=== PATIENT | male | born 1950 | race Asian ===

== ENCOUNTER 2019-05-03 11:58 | Inpatient (IN) | payer MEDICARE, OTHER ==
[~2019-05-03] VITALS: Ht 177.8 cm; Wt 54.4 kg
[2019-05-03] MEDS ORDERED: XARELTO10 MG ORAL (12:07)
[2019-05-03] MEDS ORDERED: SYNTHROID100 MCG ORAL (12:07)
[2019-05-03] MEDS ORDERED: CREON DR 36,001 EACH PO (12:07)
[2019-05-03 12:17] VITALS: BP 101/72
--- NOTE | 2019-05-03 12:17 | NUR ---
ED Nurse Note: PT WALKED IN TO ER TODAY FROM HOME. AOX4. PT STATES HE WAS TOLD HE NEEDS A BLOOD TRANSFUSION DUE TO HGB: 7.7 BY PMD. PT C/O DIZZINESS AND LIGHTHEADEDNESS. PT DENIES NAUSEA OR VOMITING. STEADY GAIT IN ER. PT STATES HE HAD MANY TESTS DONE TO LOCATE BLEEDING BUT ALL TESTS WERE NEGATIVE AND HIS OTHER DOCTORS HAVE BEEN UNABLE TO LOCATE ANY BLEEDING.
--- NOTE | 2019-05-03 12:30 | Emergency Room Report ---
History of Present Illness General Chief Complaint: Generalized Weakness Source: Medical Record Present Illness HPI .68-year-old male history of hypertension, gastric cancer, history of transfusions presents with symptomatic anemia, found to have a hemoglobin of 7.8 , symptoms have been chronic for the past week, no aggravating or alleviating factors no nausea no vomiting, no chest pain no shortness of breath, patient feels more fatigued. Severity is moderate Allergies: Coded Allergies: No Known Allergies (Unverified , 05/03/19) Patient History Past Medical History: see triage record Reviewed Nursing Documentation: PMH: Agreed; PSxH: Agreed Nursing Documentation-PMH Past Medical History: No History, Except For Hx Cardiac Problems: No - DVT in LLE Hx Hypertension: No - Hypothyroidism Hx Pacemaker: No Hx Asthma: No Hx COPD: No Hx Diabetes: No Hx Cancer: Yes Hx Gastrointestinal Problems: Yes - Gastric cancer, gastrectomy in 2003 Hx Dialysis: No History Of Psychiatric Problem: No Hx Neurological Problems: No Hx Cerebrovascular Accident: No Hx Seizures: No Review of Systems All Other Systems: negative except mentioned in HPI Physical Exam Vital Signs Date Time Temp Pulse Resp B/P (MAP) Pulse Ox O2 Delivery O2 Flow Rate FiO2 05/03/19 12:01 98.1 89 16 95/62 (73) 99 Room Air Sp02 EP Interpretation: reviewed, normal General Appearance: well appearing, no apparent distress, alert Head: normocephalic, atraumatic Eyes: bilateral eye PERRL, bilateral eye EOMI, bilateral eye conjunctivae pale ENT: uvula midline, moist mucus membranes Neck: supple, thyroid normal, supple/symm/no masses Respiratory: lungs clear, no respiratory distress, no retraction, no accessory muscle use Cardiovascular #1: normal peripheral pulses, regular rate, rhythm, no edema, no gallop, no murmur Gastrointestinal: non tender, soft, no guarding, no rebound Musculoskeletal: normal inspection Neurologic: alert, oriented x3 Psychiatric: mood/affect normal Skin: no rash, warm/dry Medical Decision Making Diagnostic Impression: Primary Impression: Symptomatic anemia ER Course 68-year-old male presents with symptomatic anemia will admit patient for transfusion Patient admitted to Dr. Jorge billingsley 05/03/2019 Laboratory Tests Test 05/03/19 13:20 White Blood Count 3.0 K/UL (4.8-10.8) L Red Blood Count 1.89 M/UL (4.70-6.10) L Hemoglobin 6.7 G/DL (14.2-18.0) *L Hematocrit 21.4 % (42.0-52.0) L Mean Corpuscular Volume 114 FL (80-99) H Mean Corpuscular Hemoglobin 35.6 PG (27.0-31.0) H Mean Corpuscular Hemoglobin Concent 31.4 G/DL (32.0-36.0) L Red Cell Distribution Width 18.2 % (11.6-14.8) H Platelet Count 168 K/UL (150-450) Mean Platelet Volume 5.1 FL (6.5-10.1) L Neutrophils (%) (Auto) % (45.0-75.0) Lymphocytes (%) (Auto) % (20.0-45.0) Monocytes (%) (Auto) % (1.0-10.0) Eosinophils (%) (Auto) % (0.0-3.0) Basophils (%) (Auto) % (0.0-2.0) Differential Total Cells Counted 100 Neutrophils % (Manual) 82 % (45-75) H Lymphocytes % (Manual) 15 % (20-45) L Monocytes % (Manual) 3 % (1-10) Eosinophils % (Manual) 0 % (0-3) Basophils % (Manual) 0 % (0-2) Band Neutrophils 0 % (0-8) Platelet Estimate Adequate Platelet Morphology Normal Hypochromasia 2+ Anisocytosis 1+ Macrocytosis 2+ Prothrombin Time 14.1 SEC (9.30-11.50) H Prothrombin Time INR 1.3 (0.9-1.1) H PTT 32 SEC (23-33) Sodium Level Pending Potassium Level Pending Chloride Level Pending Carbon Dioxide Level Pending Blood Urea Nitrogen Pending Creatinine Pending Estimate Glomerular Filtration Rate Pending Glucose Level Pending Calcium Level Pending Total Bilirubin Pending Aspartate Amino Transferase (AST) Pending Alanine Aminotransferase (ALT) Pending Alkaline Phosphatase Pending Total Protein Pending Albumin Pending Globulin Pending Last Vital Signs Date Time Temp Pulse Resp B/P (MAP) Pulse Ox O2 Delivery O2 Flow Rate FiO2 05/03/19 12:01 98.1 89 16 95/62 (73) 99 Room Air Disposition: ADMITTED INPATIENT Condition: Stable Referrals: Merlin Benoit MD (PCP) Josh Gabriel MD May 03, 2019 12:30
[2019-05-03 13:39] LABS: HEMATOCRIT 21.4 % (42.0-52.0); MEAN CORPUSCULAR VOLUME 114 FL (80-99); PLATELET COUNT 168 K/UL (150-450); RED BLOOD COUNT 1.89 M/UL (4.70-6.10); RED CELL DISTRIBUTION WIDTH 18.2 % (11.6-14.8)
[2019-05-03 13:41] LABS: HEMOGLOBIN 6.7 G/DL (14.2-18.0)
[2019-05-03 13:53] LABS: INR 1.3 (0.9-1.1)
--- NOTE | 2019-05-03 13:57 | NUR ---
ED Nurse Note: [facility] CALLED. REPORT GIVEN TO CHRISTINE REINA. AWAITING LAB RESULTS AND PRBC FROM BLOOD BANK FOR PT. ONCE TRANSFUSION IS INITIATED, PT WILL BE SENT TO [facility]. CHRISTINE REINA AWARE.
[2019-05-03 14:08] LABS: ANION GAP 9 mmol/L (5-15); BLOOD UREA NITROGEN 17 mg/dL (7-18); CARBON DIOXIDE 23 MMOL/L (21-32); CHLORIDE 109 MMOL/L (98-107); CREATININE 0.8 MG/DL (0.55-1.30); POTASSIUM 4.3 MMOL/L (3.5-5.1); SODIUM 141 MMOL/L (136-145)
[2019-05-03 14:12] LABS: ALANINE AMINOTRANSFERASE 52 U/L (12-78); ALBUMIN 3.1 G/DL (3.4-5.0); ALBUMIN/GLOBULIN RATIO 1.6 (1.0-2.7); ALKALINE PHOSPHATASE 56 U/L (46-116); ASPARTATE AMINO TRANSFERASE 78 U/L (15-37); BILIRUBIN,TOTAL 0.8 MG/DL (0.2-1.0)
--- NOTE | 2019-05-03 14:38 | NUR ---
NURSE NOTES: RECEIVED REPORT FROM ALEXANDRU FROM ER. PT TO BE ADMITTED TO FLOOR. ALEXANDRU WILL INITIATE FIRST UNIT OF PRBC AND SEND PT UP TO FLOOR. PER ALEXANDRU, PT STATED HE WILL SIGN OUT AMA AFTER RECEIVING BLOOD.
[2019-05-03] MEDS ORDERED: HYDROmorphone 1mg/ml Carpuject IVP PRN (15:15)
--- NOTE | 2019-05-03 15:44 | NUR ---
ED Nurse Note: BLOOD BANK CALLED STATING BLOOD READY. WENT DOWN WITH ORDER AND CONSENT. MOTORCOACH OPERATOR STATES SECOND PINK TUBE WAS NOT RECEIVED AND IS NEEDED FOR CONFIRMATION. UPON SEARCHING LAB AGAIN, TECH FOUND THE TUBE. TECH NOW RUNNING CONFIRMATION AND WILL CALL BACK WHEN BLOOD IS READY.
--- NOTE | 2019-05-03 16:21 | NUR ---
ED Nurse Note: PT TAKEN UP TO [facility] VIA GURNEY WITH ALL BELONGINGS RUNNING BLOOD TRANSFUSION. CHRISTINE REINA AWARE. VSS.
[2019-05-03] MEDS: NS w/KCl 20mEq 1000ml 1,000 ML IV SCH (16:47)
[2019-05-03] MEDS: Pancrelipase Dr Cap ORAL SCH (17:22)
--- NOTE | 2019-05-03 18:03 | NUR ---
NURSE NOTES: PT IS RECEIVING FIRST UNIT OF PRBC. TOLERATING WELL. DENIES SOB OR PAIN. RESTING IN BED. PT STATES HE DOES NOT HAVE MUCH OF AN APPETITE. AT BEDSIDE. PT STATES HE WANTS TO LEAVE AMA AFTER BLOOD TRANSFUSION, TO GO BACK HOME TO [place]. PT AND HAVE 4 DOGS AT HOME WITH NO ONE TO LOOK AFTER THEM. RN EDUCATED PT ON PLAN OF CARE. CRN MADE AWARE.
--- NOTE | 2019-05-03 18:15 | History and Physical Report ---
DATE OF ADMISSION: 05/03/2019 CONSULTANTS: 1. Surendra Benoit M.D. 2. Noel Mayorga M.D. CHIEF COMPLAINT: Weakness, dizziness, and symptomatic anemia. BRIEF HISTORY: This is a 68-year-old male with history of stomach cancer in the past, had stomach surgery, has been under the care of Dr. Benoit, apparently found to have symptomatic anemia, was dizzy and weak, came to [place], diagnosed with the above, and being admitted to medical floor shortly. Currently, calm in bed, in the ER [facility]. No complaint. REVIEW OF SYSTEMS: No chest pain. Slight short of breath. Slight nausea. No vomiting. No diarrhea. PAST MEDICAL HISTORY: Includes stomach cancer and anemia. PAST SURGICAL HISTORY: Stomach surgery. MEDICATION: Include just IV fluids for now. ALLERGIES: Denies. SOCIAL HISTORY: No smoking. No alcohol. No intravenous drug abuse. FAMILY HISTORY: Noncontributory. PHYSICAL EXAMINATION: GENERAL: Calm in bed, oriented x3, and in no acute distress. VITAL SIGNS: Show temperature is 98 degrees, pulse 66, respirations 14, and blood pressure 101/72. CARDIOVASCULAR: No murmurs. LUNGS: Distant and clear. ABDOMEN: Bowel sounds positive. Nontender. Nondistended. EXTREMITIES: Show no cyanosis, clubbing, or edema. NEUROLOGIC: The patient moves all extremities, slightly weak. LABORATORY AND DIAGNOSTIC DATA: White count 3.0, H and H are 6.7 and 21, and platelets 168,000. BMP shows chloride 109, calcium 8.0, and albumin 3.1. INR is 1.3. ASSESSMENT: 1. Symptomatic anemia. 2. Dizziness. 3. Weakness. 4. Malnutrition. 5. Leukopenia. 6. History of stomach cancer. PLAN: 1. Transfuse per Hematology. 2. PT, OT, and dietary followup. 3. CBC and BMP in the morning. 4. We will get Hematology and GI to evaluate. 5. We will continue to follow this patient. Liam Rader D.O. DR: CORINNA JOB#: [id number] CC:
--- NOTE | 2019-05-03 19:00 | NUR ---
NURSE NOTES: SECOND BAG OF PRBC STARTED. PT TOLERATING WELL. RN CONFIRMED WITH DR OSWALD, ONLY 2 UNITS OF PRBC TO B TRANSFUSED. RN UNABLE TO CANCEL ORDER. RN ENTERED UNDER OTHER NURSING ORDERS AND Jeet HODGSON RN, MADE AWARE.
--- NOTE | 2019-05-03 19:40 | NUR ---
HAND-OFF: Report given to Jeet HODGSON RN.
[2019-05-03 20:00] VITALS: BP_SYST 108; BP_SYST 97; BP_DIAS 65; BP_DIAS 71
[2019-05-03] MEDS: Docusate 100mg cap ORAL SCH (21:00)
[2019-05-04 00:30] VITALS: BP 97/65
[2019-05-04 04:30] VITALS: BP 82/59
[2019-05-04] MEDS: NS w/KCl 20mEq 1000ml 1,000 ML IV SCH (04:36)
--- NOTE | 2019-05-04 04:45 | NUR ---
NURSE NOTES: Pt's BP really low; upon re-assessment, BP went up to 82/59. Convinced pt to start IVF ordered by primary MD; pt agreeable. Also saw pt's own home supply of Xanax at bedside that was previously not there; asked pt if he took some Xanax and he said yes. Educated pt on hospital's policy regarding keeping home meds at bedside; pt refused to turn in medication and then proceeded to deny that he took any Xanax in the first place. Will continue to monitor.
[2019-05-04 04:47] LABS: BASOPHILS % (AUTO) 0.7 % (0.0-2.0); EOSINOPHILS % (AUTO) 0.1 % (0.0-3.0); HEMATOCRIT 30.2 % (42.0-52.0); MEAN CORPUSCULAR VOLUME 103 FL (80-99); MONOCYTES % (AUTO) 4.4 % (1.0-10.0); NEUTROPHILS % (AUTO) 76.8 % (45.0-75.0); PLATELET COUNT 120 K/UL (150-450); RED BLOOD COUNT 2.92 M/UL (4.70-6.10); RED CELL DISTRIBUTION WIDTH 20.4 % (11.6-14.8); WHITE BLOOD COUNT 5.1 K/UL (4.8-10.8)
[2019-05-04 05:11] LABS: ANION GAP 8 mmol/L (5-15); BLOOD UREA NITROGEN 15 mg/dL (7-18); CALCIUM 7.6 MG/DL (8.5-10.1); CARBON DIOXIDE 23 MMOL/L (21-32); CHLORIDE 110 MMOL/L (98-107); CHOLESTEROL < 50 MG/DL (< 200); CREATININE 0.9 MG/DL (0.55-1.30); HDL CHOLESTEROL 12 MG/DL (40-60); POTASSIUM 4.1 MMOL/L (3.5-5.1); SODIUM 141 MMOL/L (136-145); TRIGLYCERIDES 66 MG/DL (30-150)
[2019-05-04 05:21] LABS: INR 1.4 (0.9-1.1)
--- NOTE | 2019-05-04 07:26 | NUR ---
HAND-OFF: Report given to CHRISTINE Barrera. Endorsed to please f/u w/MD regarding pt's low BP and w/radiology regarding time of U/S.
[2019-05-04 08:00] VITALS: BP 79/54
[2019-05-04] MEDS: Pancrelipase Dr Cap ORAL SCH (09:00)
[2019-05-04] MEDS: Docusate 100mg cap ORAL SCH (09:00)
[2019-05-04] MEDS ORDERED: NS 275ml ONE (09:29)
[2019-05-04] MEDS ORDERED: Tubing IV Blood Pump IV ONE (09:29)
--- NOTE | 2019-05-04 09:29 | NUR ---
NURSE NOTES: US of ABD done. Patient refused EGD, consent not signed. Patient yelling, anxious, wants to eat and go home. Dr. Mayorga and Sanket DRUM CLEANER notified, advised to keep patient NPO and will be in talk to patient. Patient refused, wants IV out. Dr. Rader and Dr. Benoit notified of above, blood pressure 79/54 mmHg. HH 1030.2 post transfusion. Refused morning meds. Patient wants to leave AMA, explained above status and need for further medical care, benefits and importance of hospitalization and risks for worsening illness, AMA form signed, IV discontinued by RN, no active bleeding. Spouse at bedside. Patient states he is following up with his PCP next week. Patient ambulated down to lobby with spouse and all belongings.
--- NOTE | 2019-05-04 10:08 | NUR ---
P.T NOTE: LATE ENTRY 929 P.T EVALUATION COMPLETED. PATIENT IS ALERT , O X 4 , PLEASANT AND COOPERATIVE, DENIED C/O PAIN PAIN. PATIENT IS CURRENTLY BASELINE INDEPENDENT IN ALL AREAS FUNCTIONAL MOBILITIES, GAIT/LOCOMOTION . SKILLED P.T SERVICE IS NOT NEEDED AT THIS TIME . THANK YOU FOR THIS REFERRAL.
--- NOTE | 2019-05-04 12:46 | Diagnostic Imaging Report ---
Indication: Abdominal pain Technique: Grayscale and duplex Doppler imaging of the abdomen performed. Comparison: None Findings: The liver is echogenic. Doppler interrogation of the main portal vein shows patency with hepatopedal, monophasic flow. There is no biliary ductal dilatation identified. Gallbladder is absent. There is trace ascites demonstrated. Trace bilateral pleural effusions demonstrated. Accessory spleen noted. There demonstrated part of the pancreas, aorta and IVC show no definite abnormalities. Aorta is calcified. There is an echogenic focus within the left kidney which may be an angiomyolipoma measures about 8 mm. There is no hydronephrosis. 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 Atherosclerotic disease
--- NOTE | 2019-05-04 15:29 | Consultation ---
History of Present Illness General Chief Complaint: Generalized Weakness Present Illness Allergies: Coded Allergies: No Known Allergies (Unverified , 05/03/19) Medication History Scheduled Levothyroxine Sodium* (Synthroid*), 150 MCG ORAL DAILY, (Reported) Lipase/Protease/Amylase (Creon Dr 36,000 Units Capsule), 1 EACH PO TID, ( Reported) Rivaroxaban (Xarelto*), 20 MG ORAL DAILY, (Reported) Patient History Healthcare decision maker Resuscitation status Full Code Advanced Directive on File Physical Exam Last 24 Hour Vital Signs Date Time Temp Pulse Resp B/P (MAP) Pulse Ox O2 Delivery O2 Flow Rate FiO2 05/04/19 08:00 97.5 68 21 79/54 (62) 98 05/04/19 04:30 99.9 77 16 82/59 (67) 96 05/04/19 00:30 99.8 78 18 97/65 (76) 96 05/03/19 21:00 Room Air 05/03/19 20:00 98.3 90 18 108/71 (83) 97 05/03/19 17:01 Room Air 05/03/19 16:25 99.0 86 16 100/58 100 Room Air Intake and Output 05/03/19 05/04/19 19:00 07:00 Intake Total 50 ml Balance 50 ml Intake IV Total 50 ml # Voids 1 4 # Bowel Movements 1 Laboratory Tests Test 05/04/19 04:25 White Blood Count 5.1 K/UL (4.8-10.8) # Red Blood Count 2.92 M/UL (4.70-6.10) L Hemoglobin 10.0 G/DL (14.2-18.0) #L Hematocrit 30.2 % (42.0-52.0) #L Mean Corpuscular Volume 103 FL (80-99) #H Mean Corpuscular Hemoglobin 34.3 PG (27.0-31.0) H Mean Corpuscular Hemoglobin Concent 33.2 G/DL (32.0-36.0) Red Cell Distribution Width 20.4 % (11.6-14.8) H Platelet Count 120 K/UL (150-450) L Mean Platelet Volume 5.8 FL (6.5-10.1) L Neutrophils (%) (Auto) 76.8 % (45.0-75.0) H Lymphocytes (%) (Auto) 18.0 % (20.0-45.0) L Monocytes (%) (Auto) 4.4 % (1.0-10.0) Eosinophils (%) (Auto) 0.1 % (0.0-3.0) Basophils (%) (Auto) 0.7 % (0.0-2.0) Prothrombin Time 15.0 SEC (9.30-11.50) H Prothromb Time International Ratio 1.4 (0.9-1.1) H Activated Partial Thromboplast Time 37 SEC (23-33) H Sodium Level 141 MMOL/L (136-145) Potassium Level 4.1 MMOL/L (3.5-5.1) Chloride Level 110 MMOL/L (98-107) H Carbon Dioxide Level 23 MMOL/L (21-32) Anion Gap 8 mmol/L (5-15) Blood Urea Nitrogen 15 mg/dL (7-18) Creatinine 0.9 MG/DL (0.55-1.30) Estimat Glomerular Filtration Rate > 60 mL/min (>60) Glucose Level 103 MG/DL (74-106) Calcium Level 7.6 MG/DL (8.5-10.1) L Triglycerides Level 66 MG/DL (30-150) Cholesterol Level < 50 MG/DL (< 200) LDL Cholesterol 15 mg/dL (<100) HDL Cholesterol 12 MG/DL (40-60) L Cholesterol/HDL Ratio 4.2 (3.3-4.4) CA 19-9 Antigen Pending Thyroid Stimulating Hormone (TSH) 1.096 uiU/mL (0.358-3.740) Height (Feet): 5 Height (Inches): 10.00 Weight (Pounds): 120 Assessment/Plan Assessment/Plan: PATIENT SEEN IN THE AM prior to leaving [place] Hematology Consultation SUPRIYA LAIRD: Melissa Rader RFC: Anemia eval DOS: 05/04/19 Chief Complaint: Generalized Weakness ID 68-year-old male history of hypertension, gastric cancer, history of transfusions presents with symptomatic anemia, found to have a hemoglobin of 7.8 , symptoms have been chronic for the past week, no aggravating or alleviating factors no nausea no vomiting, no chest pain no shortness of breath, patient feels more fatigued. Severity is moderate. I saw him in the office and sent him in, admitted to Melissa Rader. He is pending PET scan for next week awaiting appt. Allergies: No Known Allergies (Unverified , 05/03/19) Patient History Past Medical History: see triage record Reviewed Nursing Documentation: PMH: Agreed; PSxH: Agreed Nursing Documentation-PMH Past Medical History: No History, Except For Hx Cardiac Problems: No - DVT in LLE Hx Hypertension: No - Hypothyroidism Hx Pacemaker: No Hx Asthma: No Hx COPD: No Hx Diabetes: No Hx Cancer: Yes Hx Gastrointestinal Problems: Yes - Gastric cancer, gastrectomy in 2003 Hx Dialysis: No History Of Psychiatric Problem: No Hx Neurological Problems: No Hx Cerebrovascular Accident: No Hx Seizures: No Review of Systems All Other Systems: negative except mentioned in HPI Physical Exam: Vitals: reviewed General Appearance: NAD HEENT: normocephalic, atraumatic Neck: non-tender, normal alignment Respiratory/Chest: normal breath sounds bilaterally Cardiovascular/Chest: normal peripheral pulses, normal rate Abdomen: normal bowel sounds, soft, nontender ++ ascites Extremities: normal range of motion Labs: noted Imaging: noted Assessment and Recs: # Anemia of chronic disease (or of iron deficiency) due to underlying chronic medical issues, multifactorial --> Anemia workup has been ordered, rule out gi bleed --> No evidence of hemolysis is noted, peripheral smear has been reviewed. --> Hgb goal >7. Transfuse prn. --> Epogen or iron at this time is not particularly indicated --> Medications have been reviewed --> low threshold for gi evaluation in case has occult + # Thrombocytopenia - potential causes multifactorial, evaluate liver and viral etiologies to begin, also could be related to underlying medications patient has received. --> US abd to evaluate for cirrhosis and hsm ordered --> does not show any --> Peripheral smear ordered to evaluate for blasts /schistocytes --> abx and other meds have been reviewed --> ok for ppx if plt >50k w/ either heparin or lovenox # Transaminitis --> is likely due to underlying fatty liver # Pleural effusion # Ascites noted The timing of this note does not necessarily reflect the time of the patient was seen. GREATLY APPRECIATE CONSULTATION. PATIENT SEEN IN THE AM prior to leaving Merlin Bingham MD May 04, 2019 15:29
--- NOTE | 2019-05-05 08:13 | Diagnostic Imaging Report ---
Indication: Reason For Exam: ABN LABS Technique: Single AP view of the chest. Comparison: None. Findings: The cardiomediastinal silhouette is within normal limits. There are patchy interstitial opacities predominantly involving the right lung. There is mild peribronchial thickening. No focal fluid. No pneumothorax. Osseous structures demonstrate no acute abnormality. Focal hyperdensity projecting over the mid thoracic spine may represent kyphoplasty material. IMPRESSION: Patchy interstitial opacities predominantly involving the right lung which may represent underlying diffuse lung disease but infectious process is not excluded.
--- NOTE | 2019-05-08 07:42 | Discharge Summary ---
Discharge Summary Discharge Summary _ DATE OF ADMISSION: 05/03/2019 DATE OF DISCHARGE: 05/04/2019 Patient left AGAINST MEDICAL ADVICE REASON FOR ADMISSION: 68 years old male with past medical history of hypertension, gastric cancer, anemia , history of blood transfusion, presented with dizziness and generalized weakness. Vital signs reveal hypotension : blood pressure 95/62. Laboratory work-up revealed leukopenia with WBC 3, hemoglobin 6.7, hematocrit 21.4 with MCV 114. INR 1.3. Stable electrolytes and renal parameters. AST 78 9, ALT 52. Albumin 3.1. Chest x-ray revealed patchy interstitial opacities, predominantly involving the right lung, possibly representing underlying diffuse lung disease, but infectious process was not excluded. Abdominal ultrasound revealed fatty liver, status post cholecystectomy, trace ascites, trace bilateral pleural effusion. 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 Atherosclerotic disease. Patient typed and crossed and admitted for blood transfusion. CONSULTANTS: wood type finisher/oncologist Dr. Benoit [facility] COURSE: Patient admitted to medical surgical floor. Patient received 3 units of packed red blood cells. Prior to signing AGAINST MEDICAL ADVICE the next day hemoglobin 10, hematocrit 30.2. WBC up to 5.1. GI consult was requested. Patient was kept n.p.o. and was scheduled for EGD. IV hydration provided. GI prophylaxis provided Stool for occult blood was ordered. Platelet count stable on admission , but the next day 120. According to wood type finisher , thrombocytopenia was multifactorial. Abdominal ultrasound did not show cirrhosis or hepatosplenomegaly. Home medication resumed, including levothyroxine. Pain management was addressed as needed. Patient was working with physical therapist. Patient declined EGD, and and decided to leave AGAINST MEDICAL ADVICE. No signs of active bleeding. The risks and consequences of signing AGAINST MEDICAL ADVICE were discussed with patient in detail. Patient verbalized understanding, nevertheless signed AMA form and left. FINAL DIAGNOSES: Symptomatic anemia requiring blood transfusion Anemia of chronic disease due to underlying chronic medical issue, multifactorial Dizziness and weakness Protein calorie malnutrition Leukopenia History of stomach cancer Transaminitis , likely due to underlying fatty liver Thrombocytopenia I have been assigned to dictate discharge summary for this account. I was not involved in the patient's management. Akiko Fitzgerald NP May 08, 2019 07:42
== END 2019-05-04 09:30 | disposition left against medical advice (07) | DRG 812 ==
LOC: EDBEDREQ 12:11 → EMR 12:25 → 4E 12:30 → EDBEDREQ 12:51 → 3E 13:47
PROC: 30233N1 Transfusion of Nonautologous Red Blood Cells into Peripheral Vein, Percutaneous Approach (ICD-10-PCS; principal; 2019-05-03)
DX: D50.9 Iron deficiency anemia, unspecified (principal); E46 Unspecified protein-calorie malnutrition; R18.8 Other ascites; Z68.1 Body mass index [BMI] 19.9 or less, adult; D69.6 Thrombocytopenia, unspecified; Z85.028 Personal history of other malignant neoplasm of stomach; R42 Dizziness and giddiness; Z86.718 Personal history of other venous thrombosis and embolism; D63.8 Anemia in other chronic diseases classified elsewhere; K76.0 Fatty (change of) liver, not elsewhere classified
CPT/HCPCS: 36415; 71045; 76700; 80048; 80053; 80061; 84443; 85007; 85025; 85610; 85730; 86850; 86900; 86901; 86920; 96360; 96361; 99285